=== PATIENT | male | born 1940 | race Caucasian/White ===

== ENCOUNTER → 2018-04-16 14:32 | Outpatient (CLI) | payer OTHER, SELFPAY ==
[2018-04-16 15:07] LABS: Hemoglobin A1C% w Est Avg Glu 8.5 % (4.0-6.0)
[2018-04-16 15:29] LABS: Alanine Aminotransferase 14 IU/L (21-72); Albumin Globulin Ratio 1.5 (1.0-2.8); Alkaline Phosphatase 93 U/L (38-126); Aspartate Aminotransferase 21 IU/L (17-59); BUN Creatinine Ratio 25.4 (6-22); Bilirubin Total 0.9 mg/dL (0.2-1.3); Blood Urea Nitrogen 33 mg/dL (9-20); Calcium 8.9 mg/dL (8.4-10.2); Carbon Dioxide 28 mmol/L (22-32); Chloride 105 mmol/L (98-107); Cholesterol 97 mg/dL (140-199); Estimated Glomerular Filt Rate 53.3 mL/min (>60); Globulin 2.6 g/dL (1.7-4.1); Glucose 170 mg/dL (80-110); HDL Cholesterol 38 mg/dL (40-60); HEMOLYSIS < 15 (0-50); LDL Cholesterol Calculated 37 mg/dL (<100); Sodium 144 mmol/L (137-145); Total Protein 6.6 g/dL (6.3-8.2); Triglycerides 109 mg/dL (35-150)
== END ==
PROVIDERS: PCP Family Medicine; Visit Provider Internal Medicine
DX: E78.00 Pure hypercholesterolemia, unspecified (principal)
CPT/HCPCS: 36415; 80053; 80061; 83036

== ENCOUNTER → 2018-07-11 12:08 | Outpatient (CLI) | payer OTHER, SELFPAY ==
[2018-07-11 12:41] LABS: Hemoglobin A1C% w Est Avg Glu 7.4 % (4.0-6.0)
[2018-07-11 13:04] LABS: BUN Creatinine Ratio 27.5 (6-22); Blood Urea Nitrogen 33 mg/dL (9-20); Calcium 9.5 mg/dL (8.4-10.2); Carbon Dioxide 29 mmol/L (22-32); Chloride 107 mmol/L (98-107); Estimated Glomerular Filt Rate 58.4 mL/min (>60); Glucose 172 mg/dL (80-110); HEMOLYSIS < 15 (0-50); Potassium 5.1 mmol/L (3.4-5.1); Sodium 148 mmol/L (137-145)
[2018-07-11 14:25] LABS: Bacteria Urine None Seen; RBC Urine None Seen (0-5/HPF); WBC Urine None Seen (0-5/HPF)
[2018-07-11 14:31] LABS: Appearance Urine UA CLEAR; Bilirubin Urine UA NEGATIVE (NEGATIVE); Color Urine UA YELLOW; Glucose Urine UA NEGATIVE (Normal); Ketones Urine UA NEGATIVE (NEGATIVE); Leukocyte Esterase Urine UA NEGATIVE (NEGATIVE); Nitrite Urine UA Negative (Negative); Occult Blood Urine UA NEGATIVE (Negative); Protein Urine UA NEGATIVE (Negative); Urobilinogen Urine UA 0.2 E.U./dL (0.2)
[2018-07-11 14:45] LABS: Squamous Epithelial Cell Urine 0-1 /HPF
[2018-07-11 14:46] LABS: Amorphous Sediment Urine 1+; Culture Indicated Urine Cult Not Indicated; Hyaline Casts Urine 10-30/LPF; Mucus Urine 1+ (Negative)
== END ==
PROVIDERS: Visit Provider Internal Medicine
DX: I10 Essential (primary) hypertension (principal); E11.9 Type 2 diabetes mellitus without complications; R79.89 Other specified abnormal findings of blood chemistry
CPT/HCPCS: 36415; 80048; 81001; 83036

== ENCOUNTER 2021-03-07 14:22 | Outpatient (RCR) | payer OTHER, SELFPAY ==
--- NOTE | 2021-03-07 16:20 | ST.OPIE ---
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 Melissa Mendoza Reason for Referral Dysphagia Setting Assessment Location Outpatient Care Visit Type Note Type Initial evaluation Next Note Type Next Note Type Treatment Note Patient Information Identification Type Name,ID Card History Pt is an 80-yr-old left handed male who was diagnosed with Parkinson's disease ~6 yrs ago . First symptoms were related to balance. Pt does not have tremors but does exhibit tardive dyskinesia pill rolling behaviors. He has been experiencing increased coughing and choking with oral intake, which brings him to Speech Therapy. Pt states this is happening most of the time and occurs with both liquids and solids. The pt was recently hospitalized at (~February 12, 2021) for 9 days d/t overdosing Parkinson's medications. Unclear if this was accidental or intentional. During hospital stay, the pt had limited verbal coherence and was discharged home on hospice care. His reports his reduced coherence was secondary to elevated blood sugars with poor response to insulin. Once home, he regained responsiveness and discharged from hospice care. The pt also c/o word recall difficulties and has a history of hearing impairment that appears to be worsening, as well as a heart attack during his recent hospital stay. PMHx is also significant for dementia, diabetes, heart disease, Polio, alcohol and drug abuse and smoking. 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 Subjective Observations The pt arrived on time accompanied by his , Arcelia, who was present throughout the eval and assisted with case history. Reported by Patient Other Symptoms Choking,Coughing,Difficulty swallowing liquids,Difficulty swallowing solids Current Diet Regular,Thin liquids Baseline Feeding Method Independent in self-feeding Patient Questionnaire No Objective Assessment Mental Status Alert,Responsive,Cooperative Oral Integrity WFL Dentition Upper dentures/partials,Lower dentures/partials Lip Function Mild impairment Observation of Lips at Rest Right sided weakness/Drooping Pucker Reduced range of motion, Reduced strength,Right sided weakness/drooping Lip Retraction Right sided weakness/Drooping Alternating Pucker/Lip Retraction Reduced range of motion, Incoordination Tongue Function Within normal limits Observations of Tongue at Rest Within normal limits Tongue Protrusion Deviates to the left Tongue Retraction Within normal limits Tongue Lateralization Within normal limits Jaw Function Within normal limits Observations of Jaw at Rest Within normal limits Jaw Opening Within normal limits Jaw Closing Within normal limits Hard/Soft Palate Function Within normal limits Observations of Hard/Soft Palate Within normal limits Nasality Within normal limits Phonation Within normal limits Respiratory Sufficiency Within normal limits Comment Moderate facial asymmetry with reduced tone and ROM at right side. Pt c/o dentures sometimes being lose fitting. He dislikes denture adhesive and so does not use. Reports occ collection of food particles under dentures. Sometimes prefers to eat without dentures. Food and Liquid Trials Position During Assessment Upright (90 degrees) Liquids Trialed Thin Solids Trialed Puree,Dysphagia Mechanical, Mechanical Soft,Regular Administration Type Cup single sip,Straw,Self- feeding Oral Impairment Mildly impaired Oral Phase Comments Mildly impacted by collection of food particles on and under dentures. Mildly extensive mastication with mild oral residue particularly with diced fruit and dry cracker, which mostly cleared with liquid wash. Pt able to use lingual sweep to assist. Pharyngeal Impairment Mildly impaired Pharyngeal Phase Comments Pt exhibited throat clearing x3 following swallows of applesauce. No other overt s/ sx of aspiration were observed . Pt's voice remained clear throughout. Fatigue/Endurance Endurance WNL [place] Swallow Protocol No Findings Swallowing Function Oropharyngeal phase dysphagia Severity of Swallow Impairment Mildly-moderately impaired Contributing Factors to Swallow Reduced oral strength/ Impairment coordination/sensation, Mastication inefficiency, Impaired airway protection Prognosis Good Based on Cognitive status,Family support,Duration of symptoms/ severity Comment The pt presents with mild- moderate oropharyngeal dysphagia. Oral dysphagia is secondary to impact from dentures and mildly reduced strength and coordination of oral musculature. Pharyngeal dysphagia is likely due to generalized muscular weakness secondary to Parkinson's disease and age. Impact on Safety and Functioning Risk for aspiration Recommendations Instrumental Assessment No Swallowing Treatment Yes Frequency 1x/wk Duration 12 wks Recommended Solids Mechanical Soft Recommended Liquids Thin Other Recommendations Chin tuck if helpful. Drink soda from straw or glass, not can or bottle. Oral care after all intake. Safety Precautions/Swallowing 1 to 1 distant supervision, Recommendations Reduce distractions,Remain upright (90 degrees) during all oral intake,Upright position at least 30 minutes after meals,Small bites and sips when eating,Slow rate; swallow between bites Medication Recommendations As Tolerated Education Patient/Caregiver Education Described results of evaluation,Patient expressed understanding of evaluation, Patient expressed agreement with goals & treatment plans, Family/caregivers expressed understanding of evaluation, Family/caregivers expressed agreement with goals & treatment plans,Patient expressed understanding of safety precautions,Patient expressed understanding of feeding recommendations,Family /caregivers expressed understanding of safety precautions,Family/caregivers expressed understanding of feeding recommendations, Patient requires further education/training,Family/ caregivers require further education/training Goals Short-term Goals 1. The pt will follow safe swallow strategies with min cues to reduce risk of aspiration. 2. The pt will perform exercises with min cues to increase strength, coordination and ROM of swallow musculature and reduce risk of aspiration. Long-term Goals 1. The pt will follow safe swallow strategies independently to reduce risk of aspiration. 2. The pt will perform exercises independently to increase strength, coordination and ROM of swallow musculature and reduce risk of aspiration. 3. The pt will tolerate least restrictive diet to meet his nutrition and hydration needs.
--- NOTE | 2021-09-13 14:11 | ST.IPDYTX ---
Visit Care Team Role Provider Type Spring Pearce DO Family Provider Non-Staff Primary Care Provider Specialty: Family Practice Address: [address] [place], [address] Email: Melissa Mendoza MD Attending Provider Non-Staff Referring Provider Specialty: Neurology Address: [address] [place], [address] Email: ER REGISTRAR Dysphagia Treatment ER REGISTRAR Dysphagia Treatment Start: 03/07/21 15:48 Freq: Status: Active Protocol: Document 09/13/21 14:08 MARI (Rec: 09/13/21 14:09 MARI [email or web address]) Dysphagia Treatment Visit Information Plan of Care Dates 03/07/21 - 06/04/21 Insurance Information [facility] Setting Assessment Location Outpatient Care Visit Type Note Type Discharge Summary Patient Information Subjective Observations The pt was last seen March 07, 2021. He has not returned for additional therapy and is discharged from skilled services at this time. Treatment Plan Appropriate for Continued Therapy No: Discharge from skilled intervention
== END 2021-11-28 09:42 ==
LOC: SP 14:22
PROVIDERS: Family Provider Family Medicine; PCP Family Medicine; Referring Provider Psychiatry & Neurology Neurology; Visit Provider Psychiatry & Neurology Neurology
DX: G20 Parkinson's disease (principal)
CPT/HCPCS: 92610